=== PATIENT | female | born 1955 | race Caucasian/White ===

== ENCOUNTER 2022-05-10 09:52 | Inpatient (IN) | payer MEDICARE ==
[~2022-05-10] VITALS: Ht 170.2 cm; Wt 64.0 kg
[2022-05-10 10:48] LABS: BASOPHILS % (AUTO) 0.4 % (0.0-2.0); EOSINOPHILS % (AUTO) 0.3 % (0.0-6.0); HEMATOCRIT 38 % (33-45); HEMOGLOBIN 12.7 g/dL (11.5-14.8); LYMPHOCYTES # (AUTO) 1.3 K/uL (0.8-4.8); LYMPHOCYTES % (AUTO) 17.7 % (20.0-44.0); MEAN CORPUSCULAR HGB CONC 33 g/dl (31.0-36.0); MEAN CORPUSCULAR VOLUME 85 fL (82-100); MONOCYTES # (AUTO) 0.6 K/uL (0.1-1.30); MONOCYTES % (AUTO) 7.8 % (2.0-12.0); NEUTROPHILS # (AUTO) 5.2 K/uL (1.8-8.9); NEUTROPHILS % (AUTO) 73.8 % (43.0-81.0); PLATELET COUNT (AUTO) 285 K/uL (150-450); RED BLOOD CELL COUNT(AUTO) 4.51 MIL/uL (4.0-5.2); WHITE BLOOD COUNT (AUTO) 7.1 K/uL (4.3-11.0)
[2022-05-10 10:57] LABS: CARBON DIOXIDE 29 mmol/L (21-32); CHLORIDE 104 mmol/L (98-107); GLUCOSE 98 mg/dL (74-106); SODIUM SERUM 138 mmol/L (136-145); UREA NITROGEN, BLOOD 16 mg/dL (7-18)
[2022-05-10 11:02] LABS: ALANINE AMINOTRANSFERASE 19 U/L (12-78); ALBUMIN 3.7 g/dL (3.4-5.0); ALKALINE PHOSPHATASE 69 U/L (46-116); ASPARTATE AMINOTRANSFERASE 19 U/L (15-37); BILIRUBIN,DIRECT 0.2 mg/dL (0.0-0.2); BILIRUBIN,TOTAL 0.6 mg/dL (0.2-1.0); TOTAL PROTEIN, SERUM 6.8 g/dL (6.4-8.2)
[2022-05-10 11:08] LABS: ALCOHOL, BLOOD < 3 mg/dL (0-0)
[2022-05-10] MEDS ORDERED: ATOR40TA PO (11:18)
[2022-05-10] MEDS ORDERED: BISA10SU11 RC (11:18)
[2022-05-10] MEDS ORDERED: CALC500T13 PO (11:18)
[2022-05-10] MEDS ORDERED: ACET-2605 PO (11:19)
[2022-05-10] MEDS ORDERED: DOCU-141 PO (11:19)
[2022-05-10] MEDS ORDERED: MAGN400O6 PO (11:19)
[2022-05-10] MEDS ORDERED: ACET-868 PO (11:19)
[2022-05-10] MEDS ORDERED: NA P133E RC (11:19)
[2022-05-10] MEDS ORDERED: ONDA4TAB5 PO (11:19)
[2022-05-10] MEDS ORDERED: POLY17PO4 PO (11:19)
[2022-05-10] MEDS ORDERED: PREG50CA PO (11:19)
[2022-05-10] MEDS ORDERED: CLOP75TA15 PO (11:19)
[2022-05-10 12:26] LABS: BILIRUBIN,URINE NEGATIVE (NEGATIVE); COLOR,URINE YELLOW (YELLOW); LEUKOCYTE ESTERASE ,URINE TRACE (NEGATIVE); NITRITE, URINE NEGATIVE (NEGATIVE); PROTEIN,URINE NEGATIVE (NEGATIVE); UGLUCOSE NEGATIVE (NEGATIVE); UROBILINOGEN,URINE 0.2 EU/dL (0.2)
[2022-05-10 12:32] LABS: BACTERIA,URINE Few /HPF (None Seen); SQUAMOUS EPITHELIAL CELL,UR Few /HPF (None Seen)
[2022-05-10] MEDS ORDERED: BISACODYL SUPP (10 MG) 10 MG/SUPP.RECT SUPP.RECT RC PRN (13:00)
[2022-05-10] MEDS ORDERED: ACETAMINOPHEN 325 MG TABLET PO PRN ×2 (13:00→15:30)
[2022-05-10] MEDS ORDERED: ACETAMINOPHEN ES 500 MG TABLET PO PRN (13:00)
[2022-05-10] MEDS ORDERED: CALCIUM CARBONATE 500 MG TAB.CHEW PO PRN (13:00)
[2022-05-10] MEDS ORDERED: MAGNESIUM HYDROXIDE 30 ML UDC PO PRN ×2 (13:00→15:30)
[2022-05-10] MEDS ORDERED: NA PHOS,M-B/NA PHOS,DI-BA 1 EA ENEMA RC PRN (13:00)
[2022-05-10] MEDS ORDERED: ONDANSETRON 4 MG TAB.RAPDIS PO PRN (13:30)
[2022-05-10] MEDS ORDERED: MAG HYDROX/AL HYDROX/SIMETH 30 ML UDC PO PRN (15:30)
[2022-05-10 16:00] VITALS: BP 133/88
[2022-05-10 19:48] VITALS: BP 101/54
[2022-05-10] MEDS: PREGABALIN 25 MG CAPSULE PO SCH (20:39)
[2022-05-10] MEDS: ATORVASTATIN 40 MG TABLET PO SCH (21:19)
[2022-05-10] MEDS: TEMAZEPAM 7.5 MG CAPSULE PO PRN (22:11)
[2022-05-11 08:00] VITALS: BP 100/51
[2022-05-11] MEDS: PREGABALIN 25 MG CAPSULE PO SCH ×3 (08:57→17:00)
[2022-05-11] MEDS: POLYETHYLENE GLYCOL 3350 17 GM POWD.PACK PO PRN (08:58)
[2022-05-11] MEDS: CLOPIDOGREL BISULFATE 75 MG TABLET PO SCH ×2 (09:00→09:15)
[2022-05-11] MEDS ORDERED: OLANZAPINE 5 MG TABLET PO SCH (12:00)
[2022-05-11] MEDS: OLANZAPINE ZYDIS 5 MG TAB.RAPDIS PO SCH ×2 (12:23→17:00)
[2022-05-11 16:00] VITALS: BP 125/77
[2022-05-11 20:42] VITALS: BP 114/59
[2022-05-11] MEDS: ATORVASTATIN 40 MG TABLET PO SCH ×2 (21:28→21:32)
[2022-05-12 08:00] VITALS: BP 148/90
[2022-05-12] MEDS: CLOPIDOGREL BISULFATE 75 MG TABLET PO SCH (09:00)
[2022-05-12] MEDS: OLANZAPINE ZYDIS 5 MG TAB.RAPDIS PO SCH ×3 (09:00→17:00)
[2022-05-12] MEDS: PREGABALIN 25 MG CAPSULE PO SCH ×2 (09:00→17:00)
[2022-05-12] MEDS ORDERED: OLANZAPINE 10 MG VIAL IM STA (12:44)
[2022-05-12] MEDS ORDERED: LORAZEPAM INJ 2 MG/ML VIAL IM STA (12:44)
[2022-05-12 16:00] VITALS: BP 128/73
[2022-05-12] MEDS: ATORVASTATIN 40 MG TABLET PO SCH (21:22)
[2022-05-13 08:00] VITALS: BP 106/63
[2022-05-13] MEDS: PREGABALIN 25 MG CAPSULE PO SCH ×2 (09:37→17:36)
[2022-05-13] MEDS: CLOPIDOGREL BISULFATE 75 MG TABLET PO SCH (10:11)
[2022-05-13] MEDS: OLANZAPINE ZYDIS 5 MG TAB.RAPDIS PO SCH ×3 (10:59→17:00)
[2022-05-13 16:00] VITALS: BP 126/75
[2022-05-13] MEDS ORDERED: LORAZEPAM INJ 2 MG/ML VIAL IM ONE (16:00)
[2022-05-13] MEDS ORDERED: OLANZAPINE 10 MG VIAL IM ONE (16:00)
[2022-05-13 21:00] VITALS: BP 125/80
[2022-05-13] MEDS: ATORVASTATIN 40 MG TABLET PO SCH (21:24)
[2022-05-14] MEDS: LORAZEPAM 0.5 MG TABLET PO PRN ×2 (01:02→13:29)
[2022-05-14 08:00] VITALS: BP 125/82
[2022-05-14] MEDS: OLANZAPINE ZYDIS 5 MG TAB.RAPDIS PO SCH ×3 (08:45→17:42)
[2022-05-14] MEDS: PREGABALIN 25 MG CAPSULE PO SCH ×2 (08:45→17:42)
[2022-05-14] MEDS: CLOPIDOGREL BISULFATE 75 MG TABLET PO SCH (08:45)
[2022-05-14] MEDS: DIVALPROEX SODIUM 125 MG CAP.SPRINK PO SCH ×2 (12:39→17:42)
[2022-05-14 16:00] VITALS: BP 134/71
[2022-05-14 20:47] VITALS: BP 130/88
[2022-05-14] MEDS: ATORVASTATIN 40 MG TABLET PO SCH (21:01)
[2022-05-15 08:00] VITALS: BP 137/71
[2022-05-15] MEDS: CLOPIDOGREL BISULFATE 75 MG TABLET PO SCH (08:34)
[2022-05-15] MEDS: OLANZAPINE ZYDIS 5 MG TAB.RAPDIS PO SCH ×4 (08:34→17:46)
[2022-05-15] MEDS: DIVALPROEX SODIUM 125 MG CAP.SPRINK PO SCH ×4 (08:34→17:47)
[2022-05-15] MEDS: PREGABALIN 25 MG CAPSULE PO SCH ×2 (08:34→17:47)
[2022-05-15 16:00] VITALS: BP 90/50
[2022-05-15 20:00] VITALS: BP 156/68
[2022-05-15 20:43] VITALS: BP 156/68
[2022-05-15] MEDS: ATORVASTATIN 40 MG TABLET PO SCH (21:32)
[2022-05-16 08:00] VITALS: BP 115/73
[2022-05-16] MEDS: PREGABALIN 25 MG CAPSULE PO SCH ×2 (08:18→16:50)
[2022-05-16] MEDS: CLOPIDOGREL BISULFATE 75 MG TABLET PO SCH (08:18)
[2022-05-16] MEDS: DOCUSATE SODIUM 100 MG CAPSULE PO PRN (08:18)
[2022-05-16] MEDS: OLANZAPINE ZYDIS 5 MG TAB.RAPDIS PO SCH ×3 (08:18→16:50)
[2022-05-16] MEDS: DIVALPROEX SODIUM 125 MG CAP.SPRINK PO SCH ×3 (08:18→16:50)
[2022-05-16] MEDS: LORAZEPAM 0.5 MG TABLET PO PRN (12:51)
[2022-05-16 16:00] VITALS: BP 141/70
[2022-05-16 20:28] VITALS: BP 100/61
[2022-05-16] MEDS: ATORVASTATIN 40 MG TABLET PO SCH (21:00)
[2022-05-17 08:00] VITALS: BP 132/59
[2022-05-17] MEDS: DIVALPROEX SODIUM 125 MG CAP.SPRINK PO SCH ×3 (08:11→17:04)
[2022-05-17] MEDS: PREGABALIN 25 MG CAPSULE PO SCH ×2 (08:12→17:04)
[2022-05-17] MEDS: OLANZAPINE ZYDIS 5 MG TAB.RAPDIS PO SCH ×3 (08:12→17:04)
[2022-05-17] MEDS: CLOPIDOGREL BISULFATE 75 MG TABLET PO SCH (08:12)
[2022-05-17] MEDS: POLYETHYLENE GLYCOL 3350 17 GM POWD.PACK PO PRN (08:12)
[2022-05-17] MEDS: DOCUSATE SODIUM 100 MG CAPSULE PO PRN ×2 (08:12→17:04)
[2022-05-17] MEDS: ENSURE ENLIVE 237 ML LIQUID (VANILLA) PO SCH ×2 (09:37→17:04)
[2022-05-17 16:00] VITALS: BP 114/57
[2022-05-17 20:28] VITALS: BP 157/76
[2022-05-17] MEDS: ATORVASTATIN 40 MG TABLET PO SCH (21:33)
[2022-05-17] MEDS: TEMAZEPAM 7.5 MG CAPSULE PO PRN (21:34)
[2022-05-18 08:00] VITALS: BP 106/58
[2022-05-18] MEDS: DIVALPROEX SODIUM 125 MG CAP.SPRINK PO SCH ×3 (09:12→17:09)
[2022-05-18] MEDS: PREGABALIN 25 MG CAPSULE PO SCH ×2 (09:12→17:10)
[2022-05-18] MEDS: OLANZAPINE ZYDIS 5 MG TAB.RAPDIS PO SCH ×3 (09:12→17:10)
[2022-05-18] MEDS: CLOPIDOGREL BISULFATE 75 MG TABLET PO SCH (09:14)
[2022-05-18] MEDS: ENSURE ENLIVE 237 ML LIQUID (VANILLA) PO SCH ×2 (09:15→17:11)
[2022-05-18 16:33] VITALS: BP 123/92
[2022-05-18 20:45] VITALS: BP 126/62
[2022-05-18] MEDS: ATORVASTATIN 40 MG TABLET PO SCH (20:51)
[2022-05-19 06:48] LABS: BASOPHILS % (AUTO) 0.6 % (0.0-2.0); EOSINOPHILS % (AUTO) 4.8 % (0.0-6.0); HEMATOCRIT 37 % (33-45); HEMOGLOBIN 12.2 g/dL (11.5-14.8); LYMPHOCYTES # (AUTO) 1.5 K/uL (0.8-4.8); LYMPHOCYTES % (AUTO) 35.3 % (20.0-44.0); MEAN CORPUSCULAR HGB CONC 33 g/dl (31.0-36.0); MEAN CORPUSCULAR VOLUME 85 fL (82-100); MONOCYTES # (AUTO) 0.5 K/uL (0.1-1.30); MONOCYTES % (AUTO) 11.2 % (2.0-12.0); NEUTROPHILS % (AUTO) 48.1 % (43.0-81.0); PLATELET COUNT (AUTO) 252 K/uL (150-450); RED BLOOD CELL COUNT(AUTO) 4.38 MIL/uL (4.0-5.2); WHITE BLOOD COUNT (AUTO) 4.2 K/uL (4.3-11.0)
[2022-05-19 07:04] LABS: ALBUMIN 2.9 g/dL (3.4-5.0); BILIRUBIN,TOTAL 0.2 mg/dL (0.2-1.0); CALCIUM, SERUM 8.7 mg/dL (8.5-10.1); CREATININE 1.1 mg/dL (0.6-1.3); POTASSIUM 4.2 mmol/L (3.5-5.1); TOTAL PROTEIN, SERUM 5.9 g/dL (6.4-8.2)
[2022-05-19 08:00] VITALS: BP 104/58
[2022-05-19] MEDS: OLANZAPINE ZYDIS 5 MG TAB.RAPDIS PO SCH ×3 (08:51→16:37)
[2022-05-19] MEDS: DIVALPROEX SODIUM 125 MG CAP.SPRINK PO SCH ×3 (08:51→16:37)
[2022-05-19] MEDS: CLOPIDOGREL BISULFATE 75 MG TABLET PO SCH (08:51)
[2022-05-19] MEDS: PREGABALIN 25 MG CAPSULE PO SCH ×2 (08:51→16:36)
[2022-05-19] MEDS: ENSURE ENLIVE 237 ML LIQUID (VANILLA) PO SCH ×2 (09:02→16:36)
[2022-05-19 16:00] VITALS: BP 132/64
[2022-05-19 20:00] VITALS: BP 133/80
[2022-05-19 20:37] VITALS: BP 133/80
[2022-05-19] MEDS: ATORVASTATIN 40 MG TABLET PO SCH (21:48)
[2022-05-20 08:00] VITALS: BP 111/70
[2022-05-20] MEDS: PREGABALIN 25 MG CAPSULE PO SCH ×2 (08:32→16:29)
[2022-05-20] MEDS: CLOPIDOGREL BISULFATE 75 MG TABLET PO SCH (08:33)
[2022-05-20] MEDS: DIVALPROEX SODIUM 125 MG CAP.SPRINK PO SCH ×3 (08:33→16:29)
[2022-05-20] MEDS: OLANZAPINE ZYDIS 5 MG TAB.RAPDIS PO SCH ×3 (08:33→16:29)
[2022-05-20] MEDS: POLYETHYLENE GLYCOL 3350 17 GM POWD.PACK PO PRN (08:33)
[2022-05-20] MEDS: ENSURE ENLIVE 237 ML LIQUID (VANILLA) PO SCH ×2 (09:09→16:29)
[2022-05-20 15:59] LABS: BILIRUBIN,URINE NEGATIVE (NEGATIVE); COLOR,URINE YELLOW (YELLOW); LEUKOCYTE ESTERASE ,URINE NEGATIVE (NEGATIVE); NITRITE, URINE NEGATIVE (NEGATIVE); PROTEIN,URINE NEGATIVE (NEGATIVE); UGLUCOSE NEGATIVE (NEGATIVE); UROBILINOGEN,URINE 0.2 EU/dL (0.2)
[2022-05-20 16:00] VITALS: BP 106/62
[2022-05-20 16:34] LABS: BACTERIA,URINE Few /HPF (None Seen); SQUAMOUS EPITHELIAL CELL,UR Few /HPF (None Seen); WBC,URINE 0-2 /HPF (0-3)
[2022-05-20] MEDS: LORAZEPAM 0.5 MG TABLET PO PRN (18:01)
[2022-05-20 20:29] VITALS: BP 122/71
[2022-05-20] MEDS: ATORVASTATIN 40 MG TABLET PO SCH (21:09)
[2022-05-21 08:00] VITALS: BP 154/67
[2022-05-21] MEDS: PREGABALIN 25 MG CAPSULE PO SCH (08:22)
[2022-05-21] MEDS: OLANZAPINE ZYDIS 5 MG TAB.RAPDIS PO SCH ×2 (08:22→13:00)
[2022-05-21] MEDS: CLOPIDOGREL BISULFATE 75 MG TABLET PO SCH (08:22)
[2022-05-21] MEDS: DIVALPROEX SODIUM 125 MG CAP.SPRINK PO SCH ×2 (08:22→13:00)
[2022-05-21] MEDS: ENSURE ENLIVE 237 ML LIQUID (VANILLA) PO SCH (08:22)
[2022-05-21 12:00] VITALS: BP 155/65
== END 2022-05-21 12:54 | DRG 885 ==
LOC: ER 09:52 → GPS 14:31
PROVIDERS: ADMIT Nurse Practitioner Acute Care; ATTEND Psychiatry & Neurology Psychosomatic Medicine
DX: F29 Unspecified psychosis not due to a substance or known physiological condition (principal); G93.41 Metabolic encephalopathy; G40.909 Epilepsy, unspecified, not intractable, without status epilepticus; Z88.2 Allergy status to sulfonamides; Z20.822 Contact with and (suspected) exposure to COVID-19; Z73.6 Limitation of activities due to disability; F32.A Depression, unspecified; I10 Essential (primary) hypertension; E78.5 Hyperlipidemia, unspecified; K21.9 Gastro-esophageal reflux disease without esophagitis; F03.90 Unspecified dementia, unspecified severity, without behavioral disturbance, psychotic disturbance, mood disturbance, and anxiety; Z88.0 Allergy status to penicillin; Z88.6 Allergy status to analgesic agent; F39 Unspecified mood [affective] disorder
CPT/HCPCS: 36415; 80048-TC; 80053-TC; 80076-TC; 80164-TC; 81001; 85025-TC; 87081-TC; 87086-TC; C9803; G0480; J2060; J3490

== ENCOUNTER 2022-11-09 23:00 | Inpatient (IN) | payer MEDICARE, OTHER ==
[~2022-11-09] VITALS: Ht 172.7 cm; Wt 69.9 kg
[~2022-11-09 23:00] MED LIST: ACET-2605 PO; ACET-868 PO; ATOR40TA PO; BISA10SU11 RC; CALC500T13 PO; CLOP75TA15 PO; DOCU-141 PO; MAGN400O6 PO; NA P133E RC; ONDA4TAB5 PO; POLY17PO4 PO; PREG50CA PO
[2022-11-10 00:20] LABS: HEMOGLOBIN 11.8 g/dL (11.5-14.8); WHITE BLOOD COUNT (AUTO) 7.4 K/uL (4.3-11.0)
[2022-11-10 00:33] LABS: APPEARANCE,URINE CLEAR (CLEAR); BILIRUBIN,URINE NEGATIVE (NEGATIVE); BLOOD, URINE 1+ Ery/uL (NEGATIVE); COLOR,URINE YELLOW (YELLOW); KETONES,URINE TRACE mg/dL (NEGATIVE); LEUKOCYTE ESTERASE ,URINE NEGATIVE (NEGATIVE); NITRITE, URINE NEGATIVE (NEGATIVE); PH,URINE 5.5 (5.0-8.0); PROTEIN,URINE NEGATIVE (NEGATIVE); UGLUCOSE NEGATIVE (NEGATIVE); UROBILINOGEN,URINE 0.2 EU/dL (0.2)
[2022-11-10 00:38] LABS: BASOPHILS % (AUTO) 0.4 % (0.0-2.0); EOSINOPHILS % (AUTO) 0.5 % (0.0-6.0); HEMATOCRIT 36 % (33-45); LYMPHOCYTES # (AUTO) 2.6 K/uL (0.8-4.8); LYMPHOCYTES % (AUTO) 35.2 % (20.0-44.0); MEAN CORPUSCULAR HEMOGLOBIN 28 PG (26.0-33.0); MEAN CORPUSCULAR HGB CONC 33 g/dl (31.0-36.0); MEAN CORPUSCULAR VOLUME 86 fL (82-100); MONOCYTES # (AUTO) 0.9 K/uL (0.1-1.30); MONOCYTES % (AUTO) 11.8 % (2.0-12.0); NEUTROPHILS # (AUTO) 3.8 K/uL (1.8-8.9); NEUTROPHILS % (AUTO) 52.1 % (43.0-81.0); PLATELET COUNT (AUTO) 200 K/uL (150-450); RED BLOOD CELL COUNT(AUTO) 4.15 MIL/uL (4.0-5.2); RED CELL DISTRIBUTION WIDTH 14.8 % (11.5-15.0)
[2022-11-10 00:46] LABS: ADD URINE CULTURE NO; BACTERIA,URINE None seen /HPF (None Seen); SQUAMOUS EPITHELIAL CELL,UR None Seen /HPF (None Seen); WBC,URINE 0-2 /HPF (0-3)
[2022-11-10 01:04] LABS: ACETAMINOPHEN < 10 ug/ml (10-30); ALANINE AMINOTRANSFERASE 21 U/L (12-78); ALKALINE PHOSPHATASE 85 U/L (46-116); ASPARTATE AMINOTRANSFERASE 26 U/L (15-37); BILIRUBIN,DIRECT 0.1 mg/dL (0.0-0.2); BILIRUBIN,TOTAL 0.3 mg/dL (0.2-1.0); CALCIUM, SERUM 8.6 mg/dL (8.5-10.1); CARBON DIOXIDE 26 mmol/L (21-32); CHLORIDE 110 mmol/L (98-107); GLUCOSE 91 mg/dL (74-106); POTASSIUM 3.5 mmol/L (3.5-5.1); SODIUM SERUM 145 mmol/L (136-145); TOTAL PROTEIN, SERUM 6.1 g/dL (6.4-8.2); UREA NITROGEN, BLOOD 24 mg/dL (7-18)
[2022-11-10 01:06] LABS: AMPHETAMINE, URINE NEGATIVE (NEGATIVE); BARBITURATE, URINE NEGATIVE (NEGATIVE); BENZODIAZEPINE, URINE NEGATIVE (NEGATIVE); CANNABINOID, URINE NEGATIVE (NEGATIVE); COCCAINE, URINE NEGATIVE (NEGATIVE); OPIATE, URINE NEGATIVE (NEGATIVE); PHENCYCLIDINE SCREEN,URINE NEGATIVE (NEGATIVE)
[2022-11-10 01:21] LABS: ALCOHOL, BLOOD < 3 mg/dL (0-10); SALICYLATE < 2.3 mg/dL (2.8-20.0)
[2022-11-10] MEDS ORDERED: LORAZEPAM INJ 2 MG/ML VIAL ONE (04:41)
[2022-11-10] MEDS ORDERED: LORAZEPAM INJ 2 MG/ML VIAL IM ONE (05:00)
[2022-11-10 07:50] VITALS: BP 113/65; TEMP 98.1; O2SAT 98
[2022-11-10] MEDS ORDERED: ACETAMINOPHEN 325 MG TABLET PO PRN ×2 (08:00→12:30)
[2022-11-10] MEDS ORDERED: MAGNESIUM HYDROXIDE 30 ML UDC PO PRN ×2 (08:00→12:30)
[2022-11-10] MEDS ORDERED: MAG HYDROX/AL HYDROX/SIMETH 30 ML UDC PO PRN (08:00)
[2022-11-10] MEDS ORDERED: TEMAZEPAM 7.5 MG CAPSULE PO PRN (08:00)
[2022-11-10] MEDS ORDERED: CALC-494 PO (08:14)
[2022-11-10] MEDS ORDERED: OLAN10TA3 PO (08:14)
[2022-11-10] MEDS ORDERED: LORA-258 PO (08:14)
[2022-11-10] MEDS ORDERED: OLAN5TAB3 PO (08:14)
[2022-11-10] MEDS ORDERED: BLOO-668 IN (08:14)
[2022-11-10] MEDS ORDERED: DIVA500T2 PO (08:14)
[2022-11-10] MEDS ORDERED: MAG30ORA PO (08:14)
[2022-11-10] MEDS ORDERED: BLOOD SUGAR DIAGNOSTIC 1 EACH STRIP IN ONE (11:00)
[2022-11-10] MEDS ORDERED: NA PHOS,M-B/NA PHOS,DI-BA 1 EA ENEMA RC PRN (12:30)
[2022-11-10] MEDS ORDERED: ACETAMINOPHEN ES 500 MG TABLET PO PRN (12:30)
[2022-11-10] MEDS ORDERED: CALCIUM CARBONATE 500 MG TAB.CHEW PO PRN (12:30)
[2022-11-10] MEDS: LORAZEPAM 0.5 MG TABLET PO PRN (15:02)
[2022-11-10 16:00] VITALS: BP 113/98; TEMP 97.9; O2SAT 99
[2022-11-10] MEDS: PREGABALIN 25 MG CAPSULE PO SCH (16:08)
[2022-11-10] MEDS: DIVALPROEX SODIUM 125 MG CAP.SPRINK PO SCH (16:59)
[2022-11-10] MEDS: risperiDONE 1 MG TABLET PO SCH (16:59)
[2022-11-10 20:00] VITALS: BP 126/73; TEMP 98.1; O2SAT 99
[2022-11-10] MEDS: OLANZAPINE 5 MG TABLET PO SCH (21:07)
[2022-11-10] MEDS: ATORVASTATIN 40 MG TABLET PO SCH (21:08)
[2022-11-11 08:00] VITALS: BP 104/73; TEMP 97.8; O2SAT 97
[2022-11-11 08:02] LABS: ALBUMIN 3.1 g/dL (3.4-5.0); BILIRUBIN,TOTAL 0.3 mg/dL (0.2-1.0); CALCIUM, SERUM 9.1 mg/dL (8.5-10.1); CREATININE 0.9 mg/dL (0.6-1.3); POTASSIUM 4.5 mmol/L (3.5-5.1); TOTAL PROTEIN, SERUM 6.4 g/dL (6.4-8.2)
[2022-11-11] MEDS: DIVALPROEX SODIUM 125 MG CAP.SPRINK PO SCH ×3 (09:32→16:21)
[2022-11-11] MEDS: PREGABALIN 25 MG CAPSULE PO SCH ×2 (09:32→16:21)
[2022-11-11] MEDS: risperiDONE 1 MG TABLET PO SCH ×2 (09:32→16:21)
[2022-11-11] MEDS: DOCUSATE SODIUM 100 MG CAPSULE PO SCH (09:33)
[2022-11-11] MEDS: POLYETHYLENE GLYCOL 3350 17 GM POWD.PACK PO SCH (09:33)
[2022-11-11] MEDS: CLOPIDOGREL BISULFATE 75 MG TABLET PO SCH (09:35)
[2022-11-11] MEDS: LORAZEPAM 0.5 MG TABLET PO PRN (12:01)
[2022-11-11 16:00] VITALS: BP 128/83; TEMP 97.9; O2SAT 98
[2022-11-11 20:03] VITALS: BP 119/82; TEMP 97.9; O2SAT 98
[2022-11-11] MEDS: ATORVASTATIN 40 MG TABLET PO SCH (21:08)
[2022-11-11] MEDS: OLANZAPINE 5 MG TABLET PO SCH (21:08)
[2022-11-12 08:00] VITALS: BP 112/82; TEMP 98.6; O2SAT 96
[2022-11-12] MEDS: CLOPIDOGREL BISULFATE 75 MG TABLET PO SCH (08:27)
[2022-11-12] MEDS: PREGABALIN 25 MG CAPSULE PO SCH ×2 (08:27→16:35)
[2022-11-12] MEDS: POLYETHYLENE GLYCOL 3350 17 GM POWD.PACK PO SCH (08:27)
[2022-11-12] MEDS: DOCUSATE SODIUM 100 MG CAPSULE PO SCH (08:27)
[2022-11-12] MEDS: risperiDONE 1 MG TABLET PO SCH ×3 (08:27→21:18)
[2022-11-12] MEDS: DIVALPROEX SODIUM 125 MG CAP.SPRINK PO SCH ×3 (08:28→16:34)
[2022-11-12] MEDS ORDERED: Z GUARD REMEDY 4 OZ OINT TP PRN (11:00)
[2022-11-12 16:00] VITALS: BP 126/81; TEMP 97.6; O2SAT 95
[2022-11-12 20:00] VITALS: BP 118/106; TEMP 98.3; O2SAT 91
[2022-11-12] MEDS: ATORVASTATIN 40 MG TABLET PO SCH (21:18)
[2022-11-12] MEDS: Z GUARD REMEDY 4 OZ OINT TP SCH (21:20)
[2022-11-13 07:19] LABS: BASOPHILS % (AUTO) 0.4 % (0.0-2.0); EOSINOPHILS % (AUTO) 0.2 % (0.0-6.0); HEMATOCRIT 40 % (33-45); HEMOGLOBIN 13.1 g/dL (11.5-14.8); LYMPHOCYTES # (AUTO) 1.5 K/uL (0.8-4.8); LYMPHOCYTES % (AUTO) 17.7 % (20.0-44.0); MEAN CORPUSCULAR HEMOGLOBIN 29 PG (26.0-33.0); MEAN CORPUSCULAR HGB CONC 33 g/dl (31.0-36.0); MEAN CORPUSCULAR VOLUME 87 fL (82-100); MONOCYTES # (AUTO) 1.3 K/uL (0.1-1.30); MONOCYTES % (AUTO) 15.6 % (2.0-12.0); NEUTROPHILS # (AUTO) 5.5 K/uL (1.8-8.9); NEUTROPHILS % (AUTO) 66.1 % (43.0-81.0); PLATELET COUNT (AUTO) 206 K/uL (150-450); RED BLOOD CELL COUNT(AUTO) 4.58 MIL/uL (4.0-5.2); RED CELL DISTRIBUTION WIDTH 14.8 % (11.5-15.0); WHITE BLOOD COUNT (AUTO) 8.4 K/uL (4.3-11.0)
[2022-11-13 07:49] LABS: ALBUMIN 2.8 g/dL (3.4-5.0); BILIRUBIN,TOTAL 0.4 mg/dL (0.2-1.0); CALCIUM, SERUM 8.8 mg/dL (8.5-10.1); CREATININE 0.8 mg/dL (0.6-1.3); POTASSIUM 3.8 mmol/L (3.5-5.1); TOTAL PROTEIN, SERUM 6.2 g/dL (6.4-8.2)
[2022-11-13 08:00] VITALS: BP 110/66; TEMP 97.6; O2SAT 96
[2022-11-13] MEDS: ENSURE ENLIVE CHOC 237 ML CAN PO SCH ×2 (08:59→16:59)
[2022-11-13] MEDS: risperiDONE 1 MG TABLET PO SCH ×3 (09:00→20:23)
[2022-11-13] MEDS: CLOPIDOGREL BISULFATE 75 MG TABLET PO SCH (09:01)
[2022-11-13] MEDS: DOCUSATE SODIUM 100 MG CAPSULE PO SCH (09:01)
[2022-11-13] MEDS: Z GUARD REMEDY 4 OZ OINT TP SCH ×2 (09:01→20:24)
[2022-11-13] MEDS: PREGABALIN 25 MG CAPSULE PO SCH ×2 (09:01→16:58)
[2022-11-13] MEDS: POLYETHYLENE GLYCOL 3350 17 GM POWD.PACK PO SCH (09:01)
[2022-11-13] MEDS: DIVALPROEX SODIUM 125 MG CAP.SPRINK PO SCH ×3 (09:01→21:32)
[2022-11-13 16:00] VITALS: BP 124/61; TEMP 97.6; O2SAT 94
[2022-11-13 20:00] VITALS: BP 118/69; TEMP 97.4; O2SAT 96
[2022-11-13] MEDS: ATORVASTATIN 40 MG TABLET PO SCH (21:31)
[2022-11-14 06:45] LABS: APPEARANCE,URINE CLOUDY (CLEAR); BILIRUBIN,URINE 1+ (NEGATIVE); BLOOD, URINE 3+ Ery/uL (NEGATIVE); COLOR,URINE DARK YELLOW (YELLOW); KETONES,URINE TRACE mg/dL (NEGATIVE); LEUKOCYTE ESTERASE ,URINE 3+ (NEGATIVE); NITRITE, URINE POSITIVE (NEGATIVE); PROTEIN,URINE TRACE mg/dl (NEGATIVE); UGLUCOSE NEGATIVE (NEGATIVE)
[2022-11-14 06:49] LABS: ADD URINE CULTURE YES; BACTERIA,URINE Moderate /HPF (None Seen); SQUAMOUS EPITHELIAL CELL,UR Rare /HPF (None Seen); WBC,URINE 51-80 /HPF (0-3)
[2022-11-14 08:00] VITALS: BP 95/60; TEMP 97.8; O2SAT 96
[2022-11-14] MEDS: ENSURE ENLIVE CHOC 237 ML CAN PO SCH ×2 (08:08→16:21)
[2022-11-14] MEDS: DOCUSATE SODIUM 100 MG CAPSULE PO SCH (08:32)
[2022-11-14] MEDS: POLYETHYLENE GLYCOL 3350 17 GM POWD.PACK PO SCH (08:32)
[2022-11-14] MEDS: DIVALPROEX SODIUM 125 MG CAP.SPRINK PO SCH ×3 (08:33→21:44)
[2022-11-14] MEDS: PREGABALIN 25 MG CAPSULE PO SCH ×2 (08:33→16:21)
[2022-11-14] MEDS: CLOPIDOGREL BISULFATE 75 MG TABLET PO SCH (08:33)
[2022-11-14] MEDS: risperiDONE 1 MG TABLET PO SCH ×2 (08:33→16:21)
[2022-11-14] MEDS: Z GUARD REMEDY 4 OZ OINT TP SCH ×2 (08:36→21:34)
[2022-11-14] MEDS: LORAZEPAM 0.5 MG TABLET PO PRN (11:27)
[2022-11-14 12:08] LABS: BASOPHILS % (AUTO) 0.5 % (0.0-2.0); EOSINOPHILS % (AUTO) 0.6 % (0.0-6.0); HEMATOCRIT 39 % (33-45); LYMPHOCYTES # (AUTO) 2.2 K/uL (0.8-4.8); LYMPHOCYTES % (AUTO) 30.1 % (20.0-44.0); MEAN CORPUSCULAR HEMOGLOBIN 28 PG (26.0-33.0); MEAN CORPUSCULAR HGB CONC 33 g/dl (31.0-36.0); MEAN CORPUSCULAR VOLUME 86 fL (82-100); MONOCYTES # (AUTO) 0.9 K/uL (0.1-1.30); MONOCYTES % (AUTO) 12.5 % (2.0-12.0); NEUTROPHILS # (AUTO) 4.2 K/uL (1.8-8.9); NEUTROPHILS % (AUTO) 56.3 % (43.0-81.0); PLATELET COUNT (AUTO) 237 K/uL (150-450); RED BLOOD CELL COUNT(AUTO) 4.59 MIL/uL (4.0-5.2); RED CELL DISTRIBUTION WIDTH 15.1 % (11.5-15.0); WHITE BLOOD COUNT (AUTO) 7.4 K/uL (4.3-11.0)
[2022-11-14 13:04] LABS: ALBUMIN 2.9 g/dL (3.4-5.0); BILIRUBIN,TOTAL 0.6 mg/dL (0.2-1.0); CALCIUM, SERUM 8.7 mg/dL (8.5-10.1); CREATININE 0.9 mg/dL (0.6-1.3); MAGNESIUM 2.5 mg/dL (1.8-2.4); POTASSIUM 3.9 mmol/L (3.5-5.1); TOTAL PROTEIN, SERUM 6.5 g/dL (6.4-8.2)
[2022-11-14 17:02] VITALS: BP 123/82; TEMP 97.8; O2SAT 95
[2022-11-14] MEDS ORDERED: CEPHALEXIN MONOHYDRATE 500 MG CAPSULE PO SCH (19:00)
[2022-11-14 20:00] VITALS: BP 104/71; TEMP 97.3; O2SAT 94
[2022-11-14] MEDS ORDERED: risperiDONE 1 MG TABLET PO SCH (21:00)
[2022-11-14] MEDS: CEPHALEXIN MONOHYDRATE 500 MG CAPSULE PO SCH (21:33)
[2022-11-14] MEDS: ATORVASTATIN 40 MG TABLET PO SCH (21:45)
[2022-11-15 08:00] VITALS: BP 126/66; TEMP 97.7; O2SAT 97
[2022-11-15] MEDS: CLOPIDOGREL BISULFATE 75 MG TABLET PO SCH (08:27)
[2022-11-15] MEDS: CEPHALEXIN MONOHYDRATE 500 MG CAPSULE PO SCH (08:28)
[2022-11-15] MEDS: DOCUSATE SODIUM 100 MG CAPSULE PO SCH (08:28)
[2022-11-15] MEDS: DIVALPROEX SODIUM 125 MG CAP.SPRINK PO SCH (08:28)
[2022-11-15] MEDS: PREGABALIN 25 MG CAPSULE PO SCH (08:28)
[2022-11-15] MEDS: risperiDONE 1 MG TABLET PO SCH (08:29)
[2022-11-15] MEDS: POLYETHYLENE GLYCOL 3350 17 GM POWD.PACK PO SCH (08:29)
[2022-11-15] MEDS: ENSURE ENLIVE CHOC 237 ML CAN PO SCH (08:29)
[2022-11-15] MEDS: Z GUARD REMEDY 4 OZ OINT TP SCH (08:30)
[2022-11-15] MEDS ORDERED: CEFTRIAXONE 1 G in IV D5W 50 ML IV SCH (12:30)
[2022-11-15] MEDS ORDERED: IV NS 0.9% 1,000 ML IV PRN (12:30)
[2022-11-15] MEDS ORDERED: CEPH500C2 PO (12:49)
[2022-11-15] MEDS ORDERED: LACT-246 PO (12:49)
[2022-11-15] MEDS ORDERED: ALLA266C2 TP ×2 (12:49)
== END 2022-11-15 12:35 | disposition short-term general hospital (02) | DRG 885 ==
LOC: ER 23:03 → GPS 11-10 05:37
PROVIDERS: ADMIT Psychiatry & Neurology Psychosomatic Medicine; ATTEND Nurse Practitioner Acute Care
DX: F39 Unspecified mood [affective] disorder (principal); F05 Delirium due to known physiological condition; G92.8 Other toxic encephalopathy; F03.93 Unspecified dementia, unspecified severity, with mood disturbance; F03.92 Unspecified dementia, unspecified severity, with psychotic disturbance; N39.0 Urinary tract infection, site not specified; F29 Unspecified psychosis not due to a substance or known physiological condition; G40.909 Epilepsy, unspecified, not intractable, without status epilepticus; K21.9 Gastro-esophageal reflux disease without esophagitis; Z88.2 Allergy status to sulfonamides; Z88.0 Allergy status to penicillin; B96.20 Unspecified Escherichia coli [E. coli] as the cause of diseases classified elsewhere; Z73.6 Limitation of activities due to disability; Z20.822 Contact with and (suspected) exposure to COVID-19; R33.9 Retention of urine, unspecified; I10 Essential (primary) hypertension
CPT/HCPCS: 36415; 80048-TC; 80053-TC; 80061-TC; 80076-TC; 80164-TC; 81001; 83735-TC; 85025-TC; 87081-TC; 87086-TC; 97110-TC; 97116-TC; 97530-TC; C9803; G0480; J2060

== ENCOUNTER 2022-11-15 12:23 | Inpatient (IN) | payer MEDICARE, OTHER ==
[~2022-11-15] VITALS: Ht 172.7 cm; Wt 78.0 kg
[~2022-11-15 12:23] MED LIST changes: -BISA10SU11 RC; +BLOO-668 IN; +CALC-494 PO; -CALC500T13 PO; +MAG30ORA PO; -ONDA4TAB5 PO
[2022-11-15] MEDS ORDERED: CEPH500C2 PO (12:49)
[2022-11-15] MEDS ORDERED: ALLA266C2 TP ×2 (12:49)
[2022-11-15] MEDS ORDERED: LACT-246 PO (12:49)
[2022-11-15] MEDS ORDERED: ONDANSETRON HCL/PF 4 MG/2 ML VIAL IVP PRN (13:00)
[2022-11-15] MEDS ORDERED: ACETAMINOPHEN 325 MG TABLET PO PRN (13:00)
[2022-11-15] MEDS ORDERED: Z GUARD REMEDY 4 OZ OINT TP PRN (13:00)
[2022-11-15] MEDS ORDERED: MAGNESIUM HYDROXIDE 30 ML UDC PO PRN (13:00)
[2022-11-15] MEDS ORDERED: MAG HYDROX/AL HYDROX/SIMETH 30 ML UDC PO PRN (13:00)
[2022-11-15] MEDS ORDERED: HYDROCODONE/APAP 5/325MG TABLET PO PRN (13:00)
[2022-11-15 16:00] VITALS: BP 109/66; TEMP 97.4; O2SAT 94
[2022-11-15] MEDS: CEFTRIAXONE 1 G in IV D5W 50 ML IV SCH (16:13)
[2022-11-15 20:00] VITALS: BP 112/47; TEMP 99.7; O2SAT 97
[2022-11-15 22:18] VITALS: TEMP 99
[2022-11-16] MEDS: IV NS 0.9% 1,000 ML IV PRN ×2 (05:49→20:09)
[2022-11-16 06:32] LABS: BASOPHILS % (AUTO) 0.3 % (0.0-2.0); EOSINOPHILS # (AUTO) 0.1 K/uL (0.0-0.7); EOSINOPHILS % (AUTO) 0.5 % (0.0-6.0); HEMATOCRIT 39 % (33-45); HEMOGLOBIN 13.1 g/dL (11.5-14.8); LYMPHOCYTES # (AUTO) 2.1 K/uL (0.8-4.8); LYMPHOCYTES % (AUTO) 19.8 % (20.0-44.0); MEAN CORPUSCULAR HEMOGLOBIN 29 PG (26.0-33.0); MEAN CORPUSCULAR HGB CONC 34 g/dl (31.0-36.0); MEAN CORPUSCULAR VOLUME 86 fL (82-100); MONOCYTES # (AUTO) 1.7 K/uL (0.1-1.30); MONOCYTES % (AUTO) 15.5 % (2.0-12.0); NEUTROPHILS # (AUTO) 6.9 K/uL (1.8-8.9); NEUTROPHILS % (AUTO) 63.9 % (43.0-81.0); PLATELET COUNT (AUTO) 255 K/uL (150-450); RED BLOOD CELL COUNT(AUTO) 4.51 MIL/uL (4.0-5.2); RED CELL DISTRIBUTION WIDTH 14.8 % (11.5-15.0); WHITE BLOOD COUNT (AUTO) 10.7 K/uL (4.3-11.0)
[2022-11-16 06:40] LABS: CALCIUM, SERUM 8.7 mg/dL (8.5-10.1); CREATININE 0.9 mg/dL (0.6-1.3); MAGNESIUM 2.3 mg/dL (1.8-2.4); PHOSPHORUS 3.5 mg/dL (2.5-4.9)
[2022-11-16] MEDS: PANTOPRAZOLE 40 MG TABLET.DR PO SCH ×2 (07:30→07:51)
[2022-11-16 08:00] VITALS: BP 129/77; TEMP 97.8; O2SAT 98
[2022-11-16] MEDS ORDERED: NA PHOS,M-B/NA PHOS,DI-BA 1 EA ENEMA RC PRN (08:30)
[2022-11-16] MEDS ORDERED: CALCIUM CARBONATE 500 MG TAB.CHEW PO PRN (08:30)
[2022-11-16] MEDS: POLYETHYLENE GLYCOL 3350 17 GM POWD.PACK PO SCH (09:39)
[2022-11-16] MEDS: PREGABALIN 25 MG CAPSULE PO SCH ×2 (09:39→16:00)
[2022-11-16] MEDS: DOCUSATE SODIUM 100 MG CAPSULE PO SCH (09:40)
[2022-11-16] MEDS: CLOPIDOGREL BISULFATE 75 MG TABLET PO SCH (09:40)
[2022-11-16] MEDS: ENSURE ENLIVE 237 ML LIQUID (VANILLA) PO SCH ×2 (09:43→16:08)
[2022-11-16] MEDS: DIVALPROEX SODIUM 125 MG TABLET.DR PO SCH ×3 (12:38→16:00)
[2022-11-16] MEDS: CEFTRIAXONE 1 G in IV D5W 50 ML IV SCH (15:18)
[2022-11-16 16:00] VITALS: BP 129/74; TEMP 98.1; O2SAT 98
[2022-11-16 18:25] LABS: THYROID STIMULATING HORMONE 1.786 uIU/mL (0.358-3.74)
[2022-11-16 20:00] VITALS: BP 123/64; TEMP 98.4; O2SAT 98
[2022-11-16] MEDS: ATORVASTATIN 40 MG TABLET PO SCH (21:28)
[2022-11-16 22:24] VITALS: BP 123/64; TEMP 98.4; O2SAT 98
[2022-11-17 08:00] VITALS: BP 189/172; TEMP 96.8; O2SAT 97
[2022-11-17] MEDS: POLYETHYLENE GLYCOL 3350 17 GM POWD.PACK PO SCH (08:40)
[2022-11-17] MEDS: DIVALPROEX SODIUM 125 MG TABLET.DR PO SCH ×3 (08:40→16:37)
[2022-11-17] MEDS: DOCUSATE SODIUM 100 MG CAPSULE PO SCH (08:40)
[2022-11-17] MEDS: PREGABALIN 25 MG CAPSULE PO SCH ×2 (08:40→16:37)
[2022-11-17] MEDS: PANTOPRAZOLE 40 MG TABLET.DR PO SCH (08:40)
[2022-11-17] MEDS: CLOPIDOGREL BISULFATE 75 MG TABLET PO SCH (08:40)
[2022-11-17] MEDS: ENSURE ENLIVE 237 ML LIQUID (VANILLA) PO SCH ×2 (08:49→17:30)
[2022-11-17] MEDS ORDERED: LORAZEPAM INJ 2 MG/ML VIAL IV PRN (10:00)
[2022-11-17] MEDS: IV NS 0.9% 1,000 ML IV PRN (11:59)
[2022-11-17] MEDS: CEFTRIAXONE 1 G in IV D5W 50 ML IV SCH (14:09)
[2022-11-17 16:00] VITALS: BP 117/72; TEMP 99.3; O2SAT 96
[2022-11-17 20:00] VITALS: BP 117/81; TEMP 98.8; O2SAT 94
[2022-11-17] MEDS: ATORVASTATIN 40 MG TABLET PO SCH (21:10)
[2022-11-18] MEDS: IV NS 0.9% 1,000 ML IV PRN ×2 (02:02→17:36)
[2022-11-18] MEDS: PANTOPRAZOLE 40 MG TABLET.DR PO SCH ×2 (07:30→07:52)
[2022-11-18] MEDS: ENSURE ENLIVE 237 ML LIQUID (VANILLA) PO SCH ×2 (07:53→16:41)
[2022-11-18 08:00] VITALS: BP 111/72; TEMP 98.4; O2SAT 96
[2022-11-18] MEDS ORDERED: LEVOFLOXACIN 250 MG /D5W 50 ML 250 MG in PREMIX 1 EA IV SCH (09:00)
[2022-11-18] MEDS: CLOPIDOGREL BISULFATE 75 MG TABLET PO SCH ×2 (09:00→09:19)
[2022-11-18] MEDS: DIVALPROEX SODIUM 125 MG TABLET.DR PO SCH ×5 (09:00→16:51)
[2022-11-18] MEDS: POLYETHYLENE GLYCOL 3350 17 GM POWD.PACK PO SCH ×2 (09:00→09:19)
[2022-11-18] MEDS: PREGABALIN 25 MG CAPSULE PO SCH ×4 (09:00→16:51)
[2022-11-18] MEDS: DOCUSATE SODIUM 100 MG CAPSULE PO SCH ×2 (09:00→09:19)
[2022-11-18] MEDS: LEVOFLOXACIN 500 MG /D5W 100ML 500 MG in PREMIX 1 EA IV SCH (09:18)
[2022-11-18 16:00] VITALS: BP 117/73; TEMP 98.4; O2SAT 95
[2022-11-18 20:13] VITALS: BP 127/75; TEMP 99.6; O2SAT 97
[2022-11-18 21:05] VITALS: TEMP 98
[2022-11-18] MEDS: ATORVASTATIN 40 MG TABLET PO SCH (21:21)
[2022-11-19] MEDS: PANTOPRAZOLE 40 MG TABLET.DR PO SCH (07:56)
[2022-11-19 08:00] VITALS: BP 123/67; TEMP 97.5; O2SAT 98
[2022-11-19] MEDS: ENSURE ENLIVE 237 ML LIQUID (VANILLA) PO SCH (08:15)
[2022-11-19] MEDS: POLYETHYLENE GLYCOL 3350 17 GM POWD.PACK PO SCH (08:40)
[2022-11-19] MEDS: LEVOFLOXACIN 500 MG /D5W 100ML 500 MG in PREMIX 1 EA IV SCH (08:40)
[2022-11-19] MEDS: CLOPIDOGREL BISULFATE 75 MG TABLET PO SCH (08:41)
[2022-11-19] MEDS: DIVALPROEX SODIUM 125 MG TABLET.DR PO SCH ×2 (08:41→12:09)
[2022-11-19] MEDS: DOCUSATE SODIUM 100 MG CAPSULE PO SCH (08:41)
[2022-11-19] MEDS: PREGABALIN 25 MG CAPSULE PO SCH (08:41)
[2022-11-19] MEDS ORDERED: LEVO500T90 PO (11:40)
== END 2022-11-19 14:47 | DRG 689 ==
LOC: MED 12:23
PROVIDERS: ADMIT Nurse Practitioner Acute Care; ATTEND Nurse Practitioner Acute Care
DX: N39.0 Urinary tract infection, site not specified (principal); G92.8 Other toxic encephalopathy; J15.9 Unspecified bacterial pneumonia; F03.92 Unspecified dementia, unspecified severity, with psychotic disturbance; F03.93 Unspecified dementia, unspecified severity, with mood disturbance; F05 Delirium due to known physiological condition; I12.9 Hypertensive chronic kidney disease with stage 1 through stage 4 chronic kidney disease, or unspecified chronic kidney disease; N18.9 Chronic kidney disease, unspecified; B96.20 Unspecified Escherichia coli [E. coli] as the cause of diseases classified elsewhere; E78.5 Hyperlipidemia, unspecified; G40.909 Epilepsy, unspecified, not intractable, without status epilepticus; Z88.2 Allergy status to sulfonamides; Z88.0 Allergy status to penicillin; K21.9 Gastro-esophageal reflux disease without esophagitis; F39 Unspecified mood [affective] disorder; F31.9 Bipolar disorder, unspecified; K59.00 Constipation, unspecified; R33.9 Retention of urine, unspecified
CPT/HCPCS: 36415; 70450-TC; 71045-TC; 71250-TC; 80048-TC; 82607-TC; 83735-TC; 84100-TC; 84439-TC; 84443-TC; 85025-TC; 87040-TC; 87081-TC; 92526; 92611-TC; 97110-TC; 97530-TC; A4216; A4223; G0378; J0696; J1956; J2060; J7030; J7060